=== PATIENT | female | born 1955 | race Caucasian/White ===

== ENCOUNTER 2016-11-14 07:51 | Day surgery (SDC) | payer OTHER ==
[~2016-11-14 07:51] MED LIST: LIDOCAINE HCL 1% MPF SOL ONE; PROPOFOL 500 MG/50 ML EMU IV ONE
[2016-11-14 09:54] VITALS: TEMP 97
[2016-11-14 10:10] VITALS: RESP 20
[2016-11-14 10:20] VITALS: BP 137/68; PULSE 65; O2SAT 91
== END 2016-11-14 10:41 | disposition home or self-care (01) ==
LOC: SURG 07:51
PROVIDERS: ATTEND Internal Medicine Gastroenterology
DX: Z12.11 Encounter for screening for malignant neoplasm of colon (principal); R10.31 Right lower quadrant pain; K64.8 Other hemorrhoids; K55.20 Angiodysplasia of colon without hemorrhage
CPT/HCPCS: 45378; J2001; J2704

== ENCOUNTER 2018-12-11 07:30 | Day surgery (SDC) | payer BC ==
[~2018-12-11 07:30] MED LIST changes: +EPHEDRINE SULFATE 50 MG/ML SOL ONE; +FENTANYL 100MCG/2ML SOL ONE; +LIDOCAINE HCL 1% MPF 30 SOL ONE; -LIDOCAINE HCL 1% MPF SOL ONE; +PROPOFOL 10 MG/ML 200 MG/20 ML EMU IV ONE; -PROPOFOL 500 MG/50 ML EMU IV ONE; +ROCURONIUM BROMIDE 10 MG/ML SOL IV ONE; +SUCCINYLCHOLINE CHLORIDE 20 MG/ML SOL IV ONE
[2018-12-11] MEDS ORDERED: BUPIVACAINE/EPI 0.5% 10 ML SOL INFIL ONE (07:48)
[2018-12-11] MEDS ORDERED: CEFAZOLIN SODIUM 1 GM PDS ONE ×2 (08:37)
[2018-12-11] MEDS ORDERED: FENTANYL 100MCG/2ML SOL ONE (08:58)
[2018-12-11] MEDS ORDERED: NEOSTIGMINE METHYLSULFATE 1 MG/ML SOL ONE (09:16)
[2018-12-11] MEDS ORDERED: GLYCOPYRROLATE 0.2 MG/ML SOL ONE (09:17)
[2018-12-11] MEDS ORDERED: KETOROLAC TROMETHAMINE 30 MG/ML SOL ONE (10:10)
[2018-12-11 10:39] VITALS: TEMP 97.4
[2018-12-11 12:40] VITALS: RESP 20; O2SAT 94
[2018-12-11 12:41] VITALS: BP 148/88; PULSE 81
== END 2018-12-11 12:16 | disposition home or self-care (01) ==
LOC: SURG 07:30
PROVIDERS: ATTEND Surgery
DX: K81.1 Chronic cholecystitis (principal)
CPT/HCPCS: 99001; J0330; J0690; J1885; J2710; J3010; J7643; J2001; J2704; J3490